=== PATIENT | female | born 1970 | race Caucasian/White ===

== ENCOUNTER → 2018-11-15 | Outpatient (CLI) | payer OTHER | END | disposition home or self-care (01) | LOC: LABWHC1 16:28 | PROVIDERS: ATTEND Orthopaedic Surgery | DX: E55.9 Vitamin D deficiency, unspecified (principal) | CPT/HCPCS: 36415; 82306 ==

== ENCOUNTER 2024-07-23 20:14 | Emergency (ER) | payer BC, OTHER ==
[2024-07-23 20:34] LABS: Appearance,Urine Clear (Clear); Bilirubin,Urine Negative (Negative); Blood,Urine Negative (Negative); Color,Urine Light Yellow; Glucose,Urine (UA) Negative (Negative); Ketones,Urine 1+ (Negative); Leukocyte Esterase,Urine Negative (Negative); Nitrite,Urine Negative (Negative); PH, Urine 6.5 (5.0-8.0); Protein,Urine Negative (Negative); Specific Gravity,Urine 1.025 (1.001-1.035); Urobilinogen,Urine <2.0 mg/dL (<2.0)
--- NOTE | 2024-07-23 21:46 | ED ---
Female Urogenital HPI - General Chief complaint: Urogenital Stated complaint: Right Flank Pain Time Seen by Provider: 07/23/24 21:43 Source: patient, RN notes reviewed Mode of arrival: ambulatory - History of Present Illness Initial comments: 54-year-old female presenting for right flank pain x 2 hours. States she was cooking dinner tonight when she suddenly began to experience a cramping, intermittent pain in her right flank with associated nausea. States since this morning she has been experiencing dysuria and urinary urgency. Denies fever, vomiting. She has a history of an appendectomy and hysterectomy. Denies blood thinners. - Related Data Previous Rx's Medication Instructions Recorded Hydrocodone/Acetaminophen 1 each PO Q4HR PRN #20 tablet 08/26/13 [Hydrocodone/Acetaminophen 5-325] Naproxen [Naprosyn] 500 mg PO Q12HR #24 tab 08/26/13 Ketorolac [Toradol] 10 mg PO Q8HR #15 tab 07/23/24 Tamsulosin [Flomax] 0.4 mg PO DAILY #7 cap 07/23/24 Allergies Allergy/AdvReac Type Severity Reaction Status Date / Time cefazolin sodium [From Anc] Allergy Unknown Unknown Verified 07/23/24 20:18 influenza virus vaccine, Allergy Unknown Verified 07/23/24 20:18 specific [Influenza Virus Vacc,Specific] Review of Systems ROS Statement: Those systems with pertinent positive or pertinent negative responses have been documented in the HPI. ROS Other: All systems not noted in ROS Statement are negative. Past Medical History Past Medical History: No Reported History History of Any Multi-Drug Resistant Organisms: None Reported Past Surgical History: Appendectomy, Hysterectomy Additional Past Surgical History / Comment(s): OOPHERECTOMY, R. KNEE, L ROTATOR CUFF REPAIR, Past Psychological History: No Psychological Hx Reported Past Alcohol Use History: None Reported Past Drug Use History: None Reported General Exam General appearance: alert, in no apparent distress Head exam: Present: atraumatic, normocephalic, normal inspection GI/Abdominal exam: Present: soft, normal bowel sounds. Absent: distended, te nderness, guarding, rebound, rigid Back exam: Absent: CVA tenderness (R), CVA tenderness (L) Neurological exam: Present: alert, oriented X3 Psychiatric exam: Present: normal affect, normal mood Skin exam: Present: warm, dry, intact, normal color. Absent: rash Course Vital Signs 07/23/24 07/23/24 20:17 22:52 Temperature 97.7 F 98.3 F Pulse Rate 75 74 Respiratory 18 19 Rate Blood Pressure 146/103 114/72 O2 Sat by Pulse 97 95 Oximetry Medical Decision Making - Medical Decision Making Was pt. sent in by a medical professional or institution (, BRAD, CASH SURRENDER CALCULATOR, urgent care, hospital, or correction...) When possible be specific @ -No Did you speak to anyone other than the patient for history (EMS, parent, family, police, friend...)? What history was obtained from this source @ -No Did you review nursing and triage notes (agree or disagree)? Why? @ -I reviewed and agree with nursing and triage notes Were old charts reviewed (outside hosp., previous admission, EMS record, old EKG, old radiological studies, urgent care reports/EKG's, correction records)? Report findings @ -No old charts were reviewed Differential Diagnosis (chest pain, altered mental status, abdominal pain women, abdominal pain men, vaginal bleeding, weakness, fever, dyspnea, syncope, headache, dizziness, GI bleed, back pain, seizure, CVA, palpatations, mental health, musculoskeletal)? @ -Differential Back Pain: Strain, zoster, cauda equina syndrome, epidural abscess, vertebral osteomyelitis, discitis, fracture, subluxation, disc herniation, DJD, spinal stenosis, dissection, AAA, pancreatitis, peptic ulcer disease, pyelonephritis, kidney stone, this is not meant to be an all-inclusive list. EKG interpreted by me (3pts min.). @ -None X-rays interpreted by me (1pt min.). @ -None done CT interpreted by me (1pt min.). @ -CT abdomen pelvis reveals 2 mm calculus in right urethral orifice/bladder with mild right hydronephrosis consistent with passing calculus U/S interpreted by me (1pt. min.). @ -None done What testing was considered but not performed or refused? (CT, X-rays, U/S, labs)? Why? @ -None What meds were considered but not given or refused? Why? @ -None Did you discuss the management of the patient with other professionals (professionals i.e. , PA, CASH SURRENDER CALCULATOR, lab, RT, psych nurse, social services aide, spray gun striper, teacher, radio division officer, registered nurse hh case manager)? Give summary @ -No Was smoking cessation discussed for >3mins.? @ -No Was critical care preformed (if so, how long)? @ -No Were there social determinants of health that impacted care today? How? (Homelessness, low income, unemployed, alcoholism, drug addiction, transportation, low edu. Level, literacy, decrease access to med. care, alf, rehab)? @ -No Was there de-escalation of care discussed even if they declined (Discuss DNR or withdrawal of care, Hospice)? DNR status @ -No What co-morbidities impacted this encounter? (DM, HTN, Smoking, COPD, CAD, Cancer, CVA, ARF, Chemo, Hep., AIDS, mental health diagnosis, sleep apnea, m orbid obesity)? @ -None Was patient admitted / discharged? Hospital course, mention meds given and r oute, prescriptions, significant lab abnormalities, going to OR and other pertinent info. @ - discharge. 54-year-old female presenting for right flank pain x 2 hours with associated urinary urgency and dysuria. Patient is afebrile with no CVA tenderness. Tolerating orals well. Patient is well-appearing, no acute distress. Provided with IV fluids, Toradol, and Zofran for supportive care pending laboratory studies. Labs remarkable for normal white blood cell count of 10, lactic 2. Urinalysis reveals 1+ ketones and negative for blood or urinary tract infection. CT abdomen pelvis reveals 2 mm calculus in right urethral orifice/bladder with mild right hydronephrosis consistent with passing calculus. Results discussed with patient. Upon reevaluation, patient reports significant improvement of pain. As pain is controlled, patient is able to tolerate orals, and there is no sign of urinary tract infection, patient can be safely discharged home with outpatient prescription for Flomax and Toradol for pain control. Appropriate return precautions and follow-up care discussed. Case was discussed with my ED attending Dr. Don. Undiagnosed new problem with uncertain prognosis? @ -No Drug Therapy requiring intensive monitoring for toxicity (Heparin, Nitro, Insulin, Cardizem)? @ -No Were any procedures done? @ -No Diagnosis/symptom? @ -Right nephrolithiasis Acute, or Chronic, or Acute on Chronic? @ -Acute Uncomplicated (without systemic symptoms) or Complicated (systemic symptoms)? @ -Uncomplicated Side effects of treatment? @ -No Exacerbation, Progression, or Severe Exacerbation? @ -No Poses a threat to life or bodily function? How? (Chest pain, [place], [place], pneumonia, PE, COPD, DKA, ARF, appy, cholecystitis, CVA, Diverticulitis, Homicidal, Suicidal, threat to staff... and all critical care pts) @ -Not at this time - Lab Data Result diagrams: 07/23/24 21:37 07/23/24 21:37 Lab Results 07/23/24 07/23/24 07/23/24 Range/Units 20:23 21:37 21:37 WBC 9.86 (4.50-10.00) 10*3/uL RBC 4.85 (4.10-5.20) 10*6/uL Hgb 15.0 (12.0-15.0) g/dL Hct 43.1 (37.2-46.3) % MCV 88.9 (80.0-97.0) fL MCH 30.9 (27.0-32.0) pg MCHC 34.8 (32.0-37.0) g/dL Plt Count 261 (140-440) 10*3/uL MPV 11.0 (9.5-12.2) fL Immature Gran % (Auto) 0.3 % Neutrophils % 81.5 % Lymphocytes % 11.5 % Monocytes % 5.4 % Eosinophils % 0.9 % Basophils % 0.4 % Immature Gran # 0.03 (0.00-0.04) 10*3/uL Neutrophils # 8.04 H (1.80-7.70) 10*3/uL Lymphocytes # 1.13 (0.90-5.00) 10*3/uL Monocytes # 0.53 (0.20-1.00) 10*3/uL Eosinophils # 0.09 (0.04-0.35) 10*3/uL Basophils # 0.04 (0.00-0.10) 10*3/uL Sodium 136 L (137-145) mmol/L Potassium 4.5 (3.5-5.1) mmol/L Chloride 103 (98-107) mmol/L Carbon Dioxide 25 (22-30) mmol/L Anion Gap 8 mmol/L BUN 15 (7-17) mg/dL Creatinine 0.74 (0.52-1.04) mg/dL Est GFR (CKD-EPI)AfAm >90 (>60 ml/min/1.73 sqM) Est GFR (CKD-EPI)NonAf >90 (>60 ml/min/1.73 sqM) Glucose 121 H (74-99) mg/dL Plasma Lactic Acid Devan (0.7-2.0) mmol/L Calcium 10.1 (8.4-10.2) mg/dL Total Bilirubin 0.5 (0.2-1.3) mg/dL AST 24 (14-36) U/L ALT 27 (4-34) U/L Alkaline Phosphatase 87 (38-126) U/L Total Protein 7.1 (6.3-8.2) g/dL Albumin 4.4 (3.5-5.0) g/dL Urine Color Light Yellow Urine Appearance Clear (Clear) Urine pH 6.5 (5.0-8.0) Ur Specific Sunray 1.025 (1.001-1.035) Urine Protein Negative (Negative) Urine Glucose (UA) Negative (Negative) Urine Ketones 1+ H (Negative) Urine Blood Negative (Negative) Urine Nitrite Negative (Negative) Urine Bilirubin Negative (Negative) Urine Urobilinogen <2.0 (<2.0) mg/dL Ur Leukocyte Esterase Negative (Negative) 07/23/24 Range/Units 21:37 WBC (4.50-10.00) 10*3/uL RBC (4.10-5.20) 10*6/uL Hgb (12.0-15.0) g/dL Hct (37.2-46.3) % MCV (80.0-97.0) fL MCH (27.0-32.0) pg MCHC (32.0-37.0) g/dL Plt Count (140-440) 10*3/uL MPV (9.5-12.2) fL Immature Gran % (Auto) % Neutrophils % % Lymphocytes % % Monocytes % % Eosinophils % % Basophils % % Immature Gran # (0.00-0.04) 10*3/uL Neutrophils # (1.80-7.70) 10*3/uL Lymphocytes # (0.90-5.00) 10*3/uL Monocytes # (0.20-1.00) 10*3/uL Eosinophils # (0.04-0.35) 10*3/uL Basophils # (0.00-0.10) 10*3/uL Sodium (137-145) mmol/L Potassium (3.5-5.1) mmol/L Chloride (98-107) mmol/L Carbon Dioxide (22-30) mmol/L Anion Gap mmol/L BUN (7-17) mg/dL Creatinine (0.52-1.04) mg/dL Est GFR (CKD-EPI)AfAm (>60 ml/min/1.73 sqM) Est GFR (CKD-EPI)NonAf (>60 ml/min/1.73 sqM) Glucose (74-99) mg/dL Plasma Lactic Acid Devan 1.9 (0.7-2.0) mmol/L Calcium (8.4-10.2) mg/dL Total Bilirubin (0.2-1.3) mg/dL AST (14-36) U/L ALT (4-34) U/L Alkaline Phosphatase (38-126) U/L Total Protein (6.3-8.2) g/dL Albumin (3.5-5.0) g/dL Urine Color Urine Appearance (Clear) Urine pH (5.0-8.0) Ur Specific Sunray (1.001-1.035) Urine Protein (Negative) Urine Glucose (UA) (Negative) Urine Ketones (Negative) Urine Blood (Negative) Urine Nitrite (Negative) Urine Bilirubin (Negative) Urine Urobilinogen (<2.0) mg/dL Ur Leukocyte Esterase (Negative) Disposition Clinical Impression: Right nephrolithiasis Disposition: HOME SELF-CARE Condition: Stable Instructions (If sedation given, give patient instructions): Kidney Stones (ED) Additional Instructions: Take Flomax as directed. Take Toradol as needed for pain. Please return to the Emergency Department if symptoms worsen or any other concerns. Prescriptions: Tamsulosin [Flomax] 0.4 mg PO DAILY #7 cap Ketorolac [Toradol] 10 mg PO Q8HR #15 tab Is patient prescribed a controlled substance at d/c from ED?: No Referrals: Ely Gupta DO [Primary Care Provider] - 1-2 days Time of Disposition: 22:46
[2024-07-23 21:47] LABS: Basophils # (A) 0.04 10*3/uL (0.00-0.10); Basophils % (A) 0.4 %; Eosinophils # (A) 0.09 10*3/uL (0.04-0.35); Eosinophils % (A) 0.9 %; HCT 43.1 % (37.2-46.3); Lymphocytes # (A) 1.13 10*3/uL (0.90-5.00); Lymphocytes % (A) 11.5 %; MCH 30.9 pg (27.0-32.0); MCHC 34.8 g/dL (32.0-37.0); MCV 88.9 fL (80.0-97.0); Monocytes # (A) 0.53 10*3/uL (0.20-1.00); Monocytes % (A) 5.4 %; Neutrophils # (A) 8.04 10*3/uL (1.80-7.70); Neutrophils % (A) 81.5 %; Platelet Count 261 10*3/uL (140-440); RBC 4.85 10*6/uL (4.10-5.20); RDW 12.6 % (11.5-14.5); WBC 9.86 10*3/uL (4.50-10.00)
[2024-07-23] MEDS: SODIUM CHLORIDE 0.9% 1,000 ML IV STA (21:53)
[2024-07-23] MEDS: ONDANSETRON 4 MG/2 ML VIAL IVP STA (21:55)
[2024-07-23] MEDS: KETOROLAC 15 MG/ML 1 ML VIAL IVP STA (21:56)
[2024-07-23 21:58] LABS: ALT 27 U/L (4-34); AST 24 U/L (14-36); African American GFR (CKD) >90 (>60 ml/min/1.73 sqM); Albumin 4.4 g/dL (3.5-5.0); Alkaline Phosphatase 87 U/L (38-126); Anion Gap 8 mmol/L; Blood Urea Nitrogen 15 mg/dL (7-17); Calcium 10.1 mg/dL (8.4-10.2); Carbon Dioxide 25 mmol/L (22-30); Chloride 103 mmol/L (98-107); Glucose 121 mg/dL (74-99); Non-African American GFR(CKD) >90 (>60 ml/min/1.73 sqM); Potassium 4.5 mmol/L (3.5-5.1); Sodium 136 mmol/L (137-145); Total Bilirubin 0.5 mg/dL (0.2-1.3); Total Protein 7.1 g/dL (6.3-8.2)
--- NOTE | 2024-07-23 22:00 | CT ---
EXAMINATION TYPE: CT abdomen pelvis wo con DATE OF EXAM: 07/23/2024 9:48 PM COMPARISON: None CLINICAL INDICATION: Female, 54 years old with history of right flank pain; patient coming in with co mplaints of R sided flank pain that started earlier this evening., TECHNIQUE: Axial CT abdomen pelvis wo con;Sagittal and coronal reformats were created on a separate workstation. Contrast used: mL of , (none if empty) Oral contrast used: without Oral Contrast (none if empty) CT DLP: 566.6 mGycm, Automated exposure control for dose reduction was used. FINDINGS: LOWER CHEST: Small hiatal hernia. ABDOMEN LIVER: 28 mm slightly lobulated cyst in the right hepatic lobe. Diffuse low-attenuation to the liver parenchyma. GALLBLADDER AND BILE DUCTS: Unremarkable. PANCREAS: Unremarkable. SPLEEN: Unremarkable. ADRENAL GLANDS: Unremarkable. KIDNEYS AND URETERS: Mild right hydronephrosis secondary to obstructing or recently passed 2 mm calcu nam near the right ureteral orifice. Nonobstructing left renal calculus measuring up to 4 mm. No left hydronephrosis. PELVIS BLADDER: Calculus possibly in the urinary bladder versus and the distal right ureteral orifice. REPRODUCTIVE: The uterus is surgically absent. ABDOMEN & PELVIS STOMACH AND BOWEL: No evidence of bowel obstruction. PERITONEUM/RETROPERITONEUM: No evidence of pneumoperitoneum or free fluid. VASCULATURE: No evidence of aortic aneurysm. MUSCULOSKELETAL: No acute osseous abnormalities LYMPH NODES: No gross evidence for lymphadenopathy. SOFT TISSUE/ABDOMINAL WALL: Fat-containing umbilical hernia. IMPRESSION: 1. 2 mm calculus in the right ureteral orifice/in the bladder with mild right hydronephrosis. Findin gs compatible with passing calculus. 2. Nonobstructing left renal calculus. 3. Simple appearing hepatic cyst. 4. Hepatic steatosis. 5. Small hiatal hernia. [facility], , 07/23/2024 9:58 PM
[2024-07-23 22:54] VITALS: BP 114/72; PULSE 74; RESP 19; TEMP 98.3
== END 2024-07-23 22:54 | disposition home or self-care (01) ==
LOC: EC 20:14
DX: N13.2 Hydronephrosis with renal and ureteral calculous obstruction (principal); Z88.1 Allergy status to other antibiotic agents; Z88.7 Allergy status to serum and vaccine
CPT/HCPCS: 36415; 80053; 83605; 85025; 81003; 74176; 99284; 96374; 96375; 96361; J2405; J1885